=== PATIENT | female | born 1960 | race Caucasian/White ===

== ENCOUNTER 2017-06-05 16:59 | Emergency (ER) | payer SELFPAY ==
[~2017-06-05] VITALS: Ht 167.6 cm; Wt 68.0 kg
[2017-06-05 17:05] VITALS: BP 143/69; PULSE 93; RESP 16; TEMP 98.7; O2SAT 98
[2017-06-05] MEDS ORDERED: HYDR-3516 PO ×2 (17:26→17:27)
[2017-06-05] MEDS ORDERED: ACYC800T PO (17:26)
[2017-06-05] MEDS ORDERED: LIDO1ADH4 TOPICAL (17:26)
--- NOTE | 2017-06-05 17:32 | PD ---
HPI Chief Complaint: Skin Problem Time Seen by Provider: 17:14 Travel History International Travel<30 days: No Contact w/Intl Traveler<30days: No Traveled to known affect area: No History of Present Illness HPI 57-year-old female that presents to the ED for evaluation of rash to her left upper neck and chest. Per patient she's been having this for 3 days. Per patient initially she thought might be a reaction to a hand dry cleaner to her boyfriend in his car. Per patient she noted that he was somewhat itchy but also very painful and burning like. Per patient feels like nerve pain. She started noticing that she's had a rash also her shoulder and blisters. She was concerned she might have gotten shingles and she came here to get evaluated. She states that she had the chickenpox as a child. She denies any other medical issues. She has a white coating. Pain per patient is 8 out of 10 and sharp. It comes and goes. No other medical issues. No urinary bowel movement issues. PFSH Past Medical History Diabetes: Yes (Type 2) ?: Not Social History Tobacco Use: No Allergies-Medications (Allergen,Severity, Reaction): Coded Allergies: codeine (Verified Allergy, Severe, Hives, 06/05/17) Reported Meds & Prescriptions Reported Meds & Active Scripts Active Hydrocodone-Acetamin 5-325 mg (Hydrocodone/Acetaminophen) 5 Mg-325 Mg Tablet 1 Tab PO Q6HR PRN Lidoderm (Lidocaine) 5 % Adh..patch 1 Patch TOPICAL DIRECTED PRN Acyclovir 800 Mg Tab 800 Mg PO 5 TIMES A DAY 7 Days Review of Systems Except as stated in HPI: all other systems reviewed are Neg Physical Exam Narrative GENERAL: SKIN: Warm and dry. Patient has a herpetic rash to follows dermatome on the right upper chest and right upper neck. No sign of eye involvement. Rash is nowhere near the face. Herpetic in nature. Painful. Erythematous. Blistery. HEAD: Atraumatic. Normocephalic. EYES: Pupils equal and round. No scleral icterus. No injection or drainage. ENT: No nasal bleeding or discharge. Mucous membranes pink and moist. Tongue is midline. No uvula deviation. NECK: Trachea midline. No JVD. CARDIOVASCULAR: Regular rate and rhythm. No murmurs, S3, S4. RESPIRATORY: No accessory muscle use. Clear to auscultation. Breath sounds equal bilaterally. GASTROINTESTINAL: Abdomen soft, non-tender, nondistended. Hepatic and splenic margins not palpable. MUSCULOSKELETAL: Extremities without clubbing, cyanosis, or edema. No obvious deformities. Full range of motion of the upper and lower extremities bilaterally. 2+ pulses bilaterally. NEUROLOGICAL: Awake and alert. No obvious cranial nerve deficits. Motor grossly within normal limits. Five out of 5 muscle strength in the arms and legs. Normal speech. PSYCHIATRIC: Appropriate mood and affect; insight and judgment normal. Data Data Last Documented VS Vital Signs Date Time Temp Pulse Resp B/P (MAP) Pulse Ox O2 Delivery O2 Flow Rate FiO2 06/05/17 17:05 98.7 93 16 143/69 (93) 98 Orders Orders Ed Discharge Order (06/05/17 17:23) [facility] Medical Decision Making Medical Screen Exam Complete: Yes Emergency Medical Condition: Yes Medical Record Reviewed: Yes Differential Diagnosis Shingles versus herpetic rash versus rash Narrative Course 57-year-old female that presents to the ED for evaluation of rash. Patient was properly examined and was found to have signs and symptoms very consistent what appears to be herpetic rash. Likely shingles. Patient will be treated for this with acyclovir, Lortab, Lidoderm patches. Patient was told to follow closely with PCP. She was urged and whenever this improves to get the she was fixing to prevent this from happening again. She was instructed to avoid females or smell chilliness she can given chickenpox. Close follow with PCP. See ED worsening symptoms. Diagnosis Primary Impression: Shingles Qualified Codes: B02.9 - Zoster without complications Patient Instructions: General Instructions Additional Instructions: Take medications as prescribed. Follow-up with PCP. See ED for any worsening symptoms. Do not drink or drive while taking pain medication. Apply ice or heat as needed for pain Med/Other Pt SpecificInfo: Prescription(s) given Scripts Hydrocodone/Acetaminophen (Hydrocodone-Acetamin 5-325 mg) 5 Mg-325 Mg Tablet 1 TAB PO Q6HR Y for PAIN SCALE 1 TO 10, #14 Prov: Zabrina Alvarez MD 06/05/17 Lidocaine (Lidoderm) 5 % Adh..patch 1 PATCH TOPICAL DIRECTED Y for PAIN SCALE 1 TO 10, #1 BOX Prov: Zabrina Alvarez MD 06/05/17 Acyclovir (Acyclovir) 800 Mg Tab 800 MG PO 5 TIMES A DAY for Mgmt Viral Infection for 7 Days, TAB 0 Refills Prov: Zabrina Alvarez MD 06/05/17 Disposition: 01 DISCHARGE HOME Condition: Stable Marek Duron Jun 05, 2017 17:32
[2017-06-05] MEDS ORDERED: MULT-371 PO (17:34)
[2017-06-05] MEDS ORDERED: MULT1TAB46 PO (17:34)
[2017-06-05] MEDS ORDERED: OCUVTAB PO (17:34)
[2017-06-05] MEDS ORDERED: NAPR220C22 PO (17:34)
== END 2017-06-05 17:43 | disposition home or self-care (01) ==
LOC: PHEFT 16:59
DX: B02.9 Zoster without complications (principal)
CPT/HCPCS: 99283